=== PATIENT | male | born 1950 | race Caucasian/White ===

== ENCOUNTER 2020-06-03 17:50 | Emergency (ER) | payer MEDICARE ==
--- NOTE | 2020-06-03 18:22 | EDM.PDOC ---
ED HPI GENERAL MEDICAL PROBLEM - General Chief Complaint: Lower Extremity Injury/Pain Stated Complaint: LEG PAIN Time Seen by Provider: 06/03/20 18:10 Source of Information: Reports: Patient History Limitations: Reports: No Limitations - History of Present Illness INITIAL COMMENTS - FREE TEXT/NARRATIVE: Randal is a 70-year-old male presenting to the ED for evaluation of acute onset of right calf pain that started this morning. Patient states he was playing with his grandkids when he suddenly developed a severe right calf cramp that has persisted. Patient states that every time he steps on the ball of the foot he experiences significant pain for about 8-10 steps and then it starts to ease up. Patient is concerned because he has a history of a deep venous thrombosis in this leg previously and had similar symptoms that were attributed to the DVT. He is currently on no medications. He was on anticoagulation for 3 months after the DVT but it was discontinued. He denies any trauma. There is noticeable size difference between his right calf and left calf with the right being larger. Right Lower Leg Pain Score (Numeric/FACES): 6 - Related Data Allergies Allergy/AdvReac Type Severity Reaction Status Date / Time No Known Allergies Allergy Verified 06/03/20 18:54 Home Meds: Home Meds Rivaroxaban [Xarelto] 15 mg PO DAILY #21 tab 06/03/20 [Rx] Rivaroxaban [Xarelto] 20 mg PO DAILY #30 tablet 06/03/20 [Rx] Past Medical History Musculoskeletal History: Reports: Osteoarthritis Other Musculoskeletal History: NECK BACK - Infectious Disease History Infectious Disease History: Reports: Chicken Pox, Measles, Mumps Social & Family History - Tobacco Use Tobacco Use Status *Q: Never Tobacco User Second Hand Smoke Exposure: Yes - Caffeine Use Caffeine Use: Reports: Coffee - Recreational Drug Use Recreational Drug Use: No Review of Systems - Review of Systems Review Of Systems: See Below Constitutional: Reports: No Symptoms Eyes: Reports: No Symptoms Ears: Reports: No Symptoms Nose: Reports: No Symptoms Mouth/Throat: Reports: No Symptoms Respiratory: Reports: No Symptoms Cardiovascular: Reports: No Symptoms GI/Abdominal: Reports: No Symptoms Genitourinary: Reports: No Symptoms Musculoskeletal: Reports: Leg Pain (Right upper calf pain and swelling) Skin: Reports: No Symptoms Neurological: Reports: No Symptoms Psychiatric: Reports: No Symptoms ED EXAM, GENERAL - Physical Exam Exam: See Below Exam Limited By: No Limitations General Appearance: Alert, No Apparent Distress Peripheral Pulses: 2+: Radial (R), Posterior Tibial (R), Dorsalis Pedis (R) Extremities: Normal Range of Motion, Anyi's Sign (Equivocal Homans' sign. There is pain with compression of the upper calf on the right.), Leg Pain (Pain with palpation of the upper calf on the right posteriorly.), Other (Right calf is approximately 20% larger than the left.) Neurological: Alert, Oriented, Normal Cognition, No Motor/Sensory Deficits Psychiatric: Normal Affect, Normal Mood Skin Exam: Warm, Dry, Intact, Normal Color. No: Ecchymosis, Erythema Lymphatic: No Adenopathy Course - Vital Signs Last Recorded V/S: Last Vital Signs Temp 36.5 C 06/03/20 18:03 Pulse 85 06/03/20 18:03 Resp 16 06/03/20 18:03 BP 120/79 06/03/20 18:03 Pulse Ox 97 06/03/20 18:03 - Orders/Labs/Meds Orders: Active Orders 24 hr Category Date Time Status VL Duplex Lwr Ext Veins Ltd Rt [US] Stat Exams 06/03/20 18:16 Taken Rivaroxaban [Xarelto] Med 06/03/20 19:38 Stat 15 mg PO ONETIME STA Labs: Laboratory Tests 06/03/20 06/03/20 Range/Units 18:25 18:25 PT 11.9 (9.5-12.0) sec INR 1.09 (0.80-1.20) APTT 28.6 (27.0-36.0) sec Sodium 144 (140-148) mmol/L Potassium 4.3 (3.6-5.2) mmol/L Chloride 103 (100-108) mmol/L Carbon Dioxide 28 (21-32) mmol/L Anion Gap 13.3 (5.0-14.0) mmol/L BUN 22 H (7-18) mg/dL Creatinine 0.9 (0.8-1.3) mg/dL Est Cr Clr Drug Dosing 73.44 mL/min Estimated GFR (MDRD) > 60 (>60) Glucose 115 H (74-106) mg/dL Calcium 9.8 (8.5-10.1) mg/dL Magnesium 2.3 (1.8-2.4) mg/dL - Radiology Interpretation Free Text/Narrative:: The ultrasound of the right lower extremity venous duplex study demonstrating what appears to be hyperdense thrombus in the popliteal signifying more chronic thrombus with fresh thrombus extending down into the peroneal vein. This would signify acute on chronic deep venous thrombosis. - Re-Assessments/Exams Free Text/Narrative Re-Assessment/Exam: 06/03/20 19:40 reviewed the patient's labs and ultrasound showing acute on chronic deep venous thrombosis. The patient does have a history of factor V Leiden deficiency and likely should have been on chronic anticoagulation with his first DVT. We will initiate anticoagulation with rivaroxaban 10 mg daily for the first 21 days and then increasing to 20 mg daily thereafter. The patient should follow-up with his primary care provider in the next couple of weeks as this will be a lifelong anticoagulation process at this point. Indications to return to the ED were discussed and he was discharged in satisfactory condition. Departure - Departure Time of Disposition: 19:41 Disposition: Home, Self-Care 01 Clinical Impression: Factor V Leiden mutation Deep venous thrombosis (DVT) of right peroneal vein Qualifiers: Chronicity: acute Qualified Code(s): I82.451 - Acute embolism and thrombosis of right peroneal vein Deep venous thrombosis of right popliteal vein Qualifiers: Chronicity: chronic Qualified Code(s): I82.531 - Chronic embolism and thrombosis of right popliteal vein - Discharge Information Prescriptions: Rivaroxaban [Xarelto] 15 mg PO DAILY #21 tab Rivaroxaban [Xarelto] 20 mg PO DAILY #30 tablet Instructions: Deep Vein Thrombosis Referrals: PCP,None [Primary Care Provider] - Forms: ED Department Discharge Care Plan Goals: I am starting you on rivaroxaban (Xarelto) to anticoagulate you for your acute on chronic deep venous thrombosis. Because of the factor V Leiden mutation you are at a much higher risk of clotting including deep venous thrombosis, pulmonary embolism, and stroke. Because of this he will likely need to be on lifelong anticoagulation with rivaroxaban. We started out the dose at 15 mg daily for the first 21 days and then increase it to 20 mg daily thereafter. I have enclosed prescriptions for both for you to fill in the morning. We are giving you the first dose of the Xarelto 15 mg in the ED to initiate anticoagulation. You do not have to have your blood checked for blood thinning like you would with Coumadin. You are at slightly higher risk of bleeding complications related to being on anticoagulation, however, this far outweighs the risks of having a severe clotting event. Recommend following up with your primary care provider soon as possible for continued maintenance of this. Sepsis Event Note (ED) - Evaluation Sepsis Screening Result: No Definite Risk - Focused Exam Vital Signs: Vital Signs Temp Pulse Resp BP Pulse Ox 06/03/20 18:03 36.5 C 85 16 120/79 97 06/03/20 17:59 36.5 C 85 16 120/79 97 - Problem List & Annotations (1) Deep venous thrombosis (DVT) of right peroneal vein SNOMED Code(s): 993981843 Code(s): I82.451 - ACUTE EMBOLISM AND THROMBOSIS OF RIGHT PERONEAL VEIN Status: Acute Priority: High Current Visit: Yes Qualifiers: Chronicity: acute Qualified Code(s): I82.451 - Acute embolism and thrombosis of right peroneal vein (2) Deep venous thrombosis of right popliteal vein SNOMED Code(s): 631565593 Code(s): I82.431 - ACUTE EMBOLISM AND THROMBOSIS OF RIGHT POPLITEAL VEIN Status: Chronic Priority: Medium Current Visit: Yes Qualifiers: Chronicity: chronic Qualified Code(s): I82.531 - Chronic embolism and thrombosis of right popliteal vein (3) Factor V Leiden mutation SNOMED Code(s): 066952702 Code(s): D68.51 - ACTIVATED PROTEIN C RESISTANCE Status: Chronic Priority: High Current Visit: Yes - Problem List Review Problem List Initiated/Reviewed/Updated: Yes - My Orders Last 24 Hours: My Active Orders 06/03/20 18:16 VL Duplex Lwr Ext Veins Ltd Rt [US] Stat 06/03/20 19:38 Rivaroxaban [Xarelto] 15 mg PO ONETIME STA - Assessment/Plan Last 24 Hours: My Active Orders 06/03/20 18:16 VL Duplex Lwr Ext Veins Ltd Rt [US] Stat 06/03/20 19:38 Rivaroxaban [Xarelto] 15 mg PO ONETIME STA
[2020-06-03] MEDS ORDERED: Rivaroxaban 15 MG Tab PO STA (19:38)
--- NOTE | 2020-06-06 08:58 | US ---
VL Duplex Lwr Ext Veins Ltd Rt INDICATION: right calf pain, h/o previous DVT FINDINGS: Ultrasound examination of the lower extremity using Doppler and compressive technique demonstrates thrombus in the distal popliteal vein and multiple calf veins. The popliteal vein is noncompressible. Flow is absent and multiple calf veins IMPRESSION: Deep venous thrombosis in the distal popliteal vein downward into multiple caffeine. Preliminary report was given to the ER provider at the time of the examination
== END 2020-06-03 20:06 | disposition home or self-care (01) ==
LOC: JP.ED 17:50
DX: I82.451 Acute embolism and thrombosis of right peroneal vein (principal); I82.531 Chronic embolism and thrombosis of right popliteal vein; D68.51 Activated protein C resistance; Z79.01 Long term (current) use of anticoagulants; Z77.22 Contact with and (suspected) exposure to environmental tobacco smoke (acute) (chronic)
CPT/HCPCS: 36415; 80048; 83735; 85610; 85730; 93971; 99284; A9270; 99283